=== PATIENT | male | born 1970 | race American Indian/Alaskan Native ===

== ENCOUNTER 2018-01-09 09:22 | Outpatient (CLI) | payer OTHER ==
--- NOTE | 2018-01-09 10:22 | Ultrasound Report ---
Complete abdominal ultrasound: Epigastric pain and constipation. Images of the liver, spleen, and gallbladder are unremarkable. The body and head of the pancreas are well visualized but the tail is partially obscured. No pathology identified in these structures. The CBD diameter is 4 mm. The right renal length is 11.3 cm and the left length is 10.8 cm. Both kidneys are echogenically unremarkable. The proximal diameter of the abdominal aorta is 18 mm, mid diameter 16 mm, distal diameter 16 mm, right iliac diameter 0.7 cm, and left diameter 1 cm. Impressions: No pathology identified.
== END 2018-01-09 09:23 | disposition home or self-care (01) ==
LOC: SPVWC 09:22
PROVIDERS: ATTEND Internal Medicine Gastroenterology
DX: K59.09 Other constipation (principal)
CPT/HCPCS: 76700

== ENCOUNTER 2018-02-11 12:41 | Outpatient (CLI) | payer OTHER ==
--- NOTE | 2018-02-11 14:58 | Cat Scan Report ---
CT ABDOMEN PELVIS WITHOUT CONTRAST: HISTORY: Epigastric abdominal pain. COMPARISON: none. TECHNIQUE: Helical CT in 1.25mm intervals without IV contrast. Sagittal and coronal reconstructions. FINDINGS: Lung bases: Normal. Liver: Normal. Biliary system: Normal. Pancreas: Normal. Spleen: Normal. Kidneys/ureters/bladder: Normal. Adrenal glands: Normal. Aorta: Normal. Intestines: Normal. Appendix: Normal. Pelvic viscera: Normal. Ascites: None. Adenopathy: None. Musculoskeletal: Normal. IMPRESSION: Unremarkable CT scan of the abdomen and pelvis without contrast.
== END 2018-02-11 12:42 | disposition home or self-care (01) ==
LOC: CT 12:41
PROVIDERS: ATTEND Internal Medicine Gastroenterology
DX: K59.09 Other constipation (principal); R10.13 Epigastric pain; R25.2 Cramp and spasm; I10 Essential (primary) hypertension; E11.9 Type 2 diabetes mellitus without complications; J45.909 Unspecified asthma, uncomplicated
CPT/HCPCS: 74176